=== PATIENT | male | born 1995 | race Caucasian/White ===

== ENCOUNTER 2018-01-29 05:35 | Day surgery (SDC) | payer OTHER ==
[2018-01-29] MEDS: POLYMYXIN/BACITRACIN 1L IRRIG (06:57)
[2018-01-29] MEDS: BUPIVACAINE 0.25% (MPF) 30 ML INJ (06:57)
[2018-01-29] MEDS: SOD CHLORIDE 0.9% 1,000 ML IV ×2 (07:28→08:59)
[2018-01-29] MEDS ORDERED: CEFAZOLIN 1 GM INJ (07:46)
[2018-01-29] MEDS ORDERED: NEOSTIGMINE 3 MG/3 ML SYRINGE (07:46)
[2018-01-29] MEDS ORDERED: ROCURONIUM 50 MG INJ (07:46)
[2018-01-29] MEDS ORDERED: ONDANSETRON 4 MG INJ ×2 (07:46→09:28)
[2018-01-29] MEDS ORDERED: GLYCOPYRROLATE 0.4 MG INJ (07:46)
[2018-01-29] MEDS ORDERED: FENTAnyl 50 MCG/ML VIAL ×2 (07:46→08:16)
[2018-01-29] MEDS ORDERED: ROPIVACAINE 0.5 % 30 ML VIAL (07:46)
[2018-01-29] MEDS ORDERED: DEXAMETHASONE 4 MG/ML 1 ML INJ (07:46)
[2018-01-29] MEDS ORDERED: PROPOFOL 20 ML (07:46)
[2018-01-29] MEDS ORDERED: MIDAZOLAM 1 MG/ML 2 ML INJ (07:46)
[2018-01-29] MEDS ORDERED: SUGAMMADEX SODIUM 200 MG/2 ML VIAL IV (08:36)
[2018-01-29] MEDS ORDERED: LABETALOL HCL 20MG INJ IV ×2 (09:00)
[2018-01-29] MEDS ORDERED: CEFAZOLIN 2 GM/50 ML (PMX) 50 ML IVPB (09:00)
[2018-01-29] MEDS ORDERED: DIPHENHYDRAMINE 50 MG INJ IV ×2 (09:00)
[2018-01-29] MEDS ORDERED: IPRATROPIUM (NEB) 0.5 MG/2.5 ML AMP HHN ×2 (09:00)
[2018-01-29] MEDS ORDERED: MEPERIDINE 25 MG INJ IV (09:00)
[2018-01-29] MEDS ORDERED: EPHEDrine SULFATE 50 MG/5 ML SYG IV ×2 (09:00)
[2018-01-29] MEDS ORDERED: hydrALAzine 20 MG INJ IV ×2 (09:00)
[2018-01-29] MEDS ORDERED: ALBUTEROL 0.083% (NEB) 2.5 MG/3 ML AMP HHN ×2 (09:00)
[2018-01-29] MEDS ORDERED: TRIMETHOBENZAMIDE 100 MG/ML VIAL IM ×2 (09:00)
[2018-01-29] MEDS ORDERED: MIDAZOLAM 1 MG/ML 2 ML INJ IV ×2 (09:00)
[2018-01-29] MEDS ORDERED: FENTAnyl 50 MCG/ML VIAL IV ×6 (09:00)
[2018-01-29] MEDS ORDERED: HYDROmorphONE 1 MG/5 ML IV SYRINGE IV ×4 (09:00)
[2018-01-29] MEDS ORDERED: OXYCODONE/ACETAMINOPHEN (5/325) TAB PO ×4 (09:00)
[2018-01-29] MEDS ORDERED: ONDANSETRON 4 MG INJ IV (09:00)
[2018-01-29] MEDS ORDERED: MEPERIDINE 25 MG INJ (09:21)
[2018-01-29] MEDS: MEPERIDINE 25 MG INJ IV (09:34)
[2018-01-29] MEDS: ONDANSETRON 4 MG INJ IV (09:35)
[2018-01-29] MEDS: HYDROmorphONE 1 MG/5 ML IV SYRINGE IV ×3 (09:38→09:50)
[2018-01-29] MEDS: HYDROCODONE/APAP (5/325) TAB PO (09:59)
== END 2018-01-29 10:50 | disposition home or self-care (01) ==
LOC: SDS 05:35
DX: K40.30 Unilateral inguinal hernia, with obstruction, without gangrene, not specified as recurrent (principal)
CPT/HCPCS: 49507